=== PATIENT | female | born 1960 | race African-American/Black ===

== ENCOUNTER 2023-12-20 02:30 | Inpatient (IN) | payer SELFPAY ==
[~2023-12-20] VITALS: Ht 167.6 cm; Wt 90.7 kg
[2023-12-20 03:10] LABS: CHLORIDE 102 mEq/L (98-107); POTASSIUM 3.3 mEq/L (3.5-5.1); SODIUM 138 mEq/L (136-145)
[2023-12-20 03:11] LABS: CARBON DIOXIDE 29 mEq/L (21-32)
[2023-12-20 03:12] LABS: CALCIUM 9.6 mg/dL (8.7-10.4)
[2023-12-20 03:16] LABS: GLUCOSE 148 mg/dL (70-105)
[2023-12-20 03:17] LABS: UREA NITROGEN BLOOD 11 mg/dL (9-23)
[2023-12-20 03:23] LABS: BASOPHILS % 0.8 % (0.0-2.0); EOSINOPHILS % 1.4 % (0.0-5.0); HEMATOCRIT. 37.8 % (36.0-48.0); HEMOGLOBIN. 12.6 g/dL (12.0-16.0); LYMPHOCYTES % 39.9 % (20.0-50.0); MEAN CORPUSCULAR HEMOGLOBIN 29.1 pg (28.0-32.0); MEAN CORPUSCULAR HGB CONC 33.3 g/dL (31.0-37.0); MEAN CORPUSCULAR VOLUME 87.5 fL (81.0-99.0); MEAN PLATELET VOLUME 7.5 fl (7.4-10.4); MONOCYTES % 7.5 % (2.0-8.0); NEUTROPHILS % 50.4 % (40.0-76.0); PLATELET 379 x1000/uL (130-400); RED BLOOD CELL COUNT 4.32 mill/uL (4.2-5.4); RED CELL DISTRIBUTION WIDTH 14.6 % (11.6-14.6); WHITE BLOOD COUNT 10.9 x1000/uL (4.5-11.0)
[2023-12-20] MEDS: SODIUM CHLORIDE 0.9% 1,000 ML IV ONE (03:28)
[2023-12-20 03:35] LABS: INR 0.9; PROTHROMBIN TIME 10.6 sec (9.6-11.0)
[2023-12-20] MEDS: KETOROLAC 30MG/ML VIAL IV STA (03:36)
[2023-12-20 03:40] LABS: ETHANOL BLOOD < 10 mg/dL (<10)
[2023-12-20 05:21] LABS: CLARITY URINE CLEAR (CLEAR); COLOR URINE YELLOW (YELLOW); GLUCOSE URINE NEGATIVE (NEGATIVE); KETONES URINE NEGATIVE (NEGATIVE); LEUKOCYTE ESTERASE URINE NEGATIVE (NEGATIVE); NITRITE URINE NEGATIVE (NEGATIVE); OCCULT BLOOD URINE NEGATIVE (NEGATIVE); PH URINE >=9.0 (4.5-8.0); PROTEIN URINE TRACE (NEGATIVE); SPECIFIC GRAVITY URINE 1.012 (1.005-1.030); UROBILINOGEN URINE 0.2 E.U./dL (0.2-1.0)
[2023-12-20 05:29] LABS: BACTERIA URINE NONE SEEN; RBC URINE 0-2 /hpf (0-2); SQUAMOUS EPITHELIAL CELL URINE FEW /lpf (RARE/1+); WBC URINE 0-2 /hpf (0-2)
[2023-12-20 05:47] LABS: *AMPHETAMINES SCREEN URINE NEGATIVE (NEGATIVE); *BARBITURATES SCREEN URINE NEGATIVE (NEGATIVE); *BENZODIAZEPINES SCREEN URINE NEGATIVE (NEGATIVE); *COCAINE SCREEN URINE NEGATIVE (NEGATIVE); CANNABINOID URINE SCREEN NEGATIVE (NEGATIVE); ECSTASY MDMA SCREEN URINE NEGATIVE (NEGATIVE); METHADONE URINE SCREEN NEGATIVE (NEGATIVE); OPIATES URINE SCREEN NEGATIVE (NEGATIVE); PHENCYCLIDINE URINE SCREEN NEGATIVE (NEGATIVE)
[2023-12-20] MEDS ORDERED: BACL-141 MT (06:06)
[2023-12-20] MEDS ORDERED: ACET-2708 MT (06:06)
[2023-12-20 06:13] LABS: ALANINE AMINOTRANSFERASE 36 IU/L (10-49)
[2023-12-20 06:14] LABS: ALBUMIN 4.8 g/dL (3.2-4.8); ASPARTATE AMINOTRANSFERASE 27 IU/L (<34); BILIRUBIN DIRECT 0.2 mg/dL (<=3.0); BILIRUBIN TOTAL 0.6 mg/dL (0.1-1.0); PROTEIN TOTAL 8.1 g/dL (6.0-8.3)
[2023-12-20] MEDS: POTASSIUM CHLORIDE 20MEQ/PACKET PO SCH (10:00)
[2023-12-20 10:45] LABS: TROPONIN I HIGH SENSITIVITY 10 ng/L (3.0-34)
[2023-12-20] MEDS: KETOROLAC 30MG/ML VIAL IV PRN (11:36)
[2023-12-20] MEDS: HYDRALAZINE 20MG/ML VIAL IV PRN (11:36)
[2023-12-20] MEDS ORDERED: DEXTROSE 50% WATER 50ML SYRINGE IV PRN (15:00)
[2023-12-20] MEDS: LOSARTAN 25 MG TABLET PO SCH (15:27)
[2023-12-20] MEDS ORDERED: CLONIDINE 0.1MG TABLET PO PRN (16:15)
[2023-12-20] MEDS ORDERED: ACETAMINOPHEN 650MG/20.3ML UDC PO PRN (16:15)
[2023-12-20] MEDS: INSULIN LISPRO 100 UNITS/ML SUBCUT SCH (17:01)
[2023-12-20] MEDS: BLOOD SUGAR DIAGNOSTIC STRIP TEST SCH (17:01)
[2023-12-20] MEDS ORDERED: KETOROLAC 15MG/ML VIAL IV PRN (18:00)
[2023-12-20 19:01] LABS: T4 FREE 1.5 ng/dL (0.89-1.76); THYROID STIMULATING HORMONE 2.62 uIU/mL (0.55-4.78)
[2023-12-20 20:00] VITALS: BP 103/66; PULSE 83; RESP 18; TEMP 36.83628; O2SAT 98
[2023-12-20] MEDS: BACLOFEN 10MG TABLET PO SCH (22:24)
[2023-12-20 23:03] VITALS: BP 142/72; PULSE 75; RESP 20; TEMP 36.5292
[2023-12-21] VITALS: BP 125/71; PULSE 74; RESP 18; TEMP 36.3918; O2SAT 99
[2023-12-21] MEDS ORDERED: AMLO-308 PO (00:38)
[2023-12-21 04:00] VITALS: BP 139/81; PULSE 68; RESP 18; TEMP 36.50292; O2SAT 95
[2023-12-21] MEDS: PANTOPRAZOLE 40MG DR TABLET PO SCH (06:01)
[2023-12-21 08:00] VITALS: BP 143/85; PULSE 64; RESP 20; TEMP 36.6696; O2SAT 100
[2023-12-21] MEDS ORDERED: NIFEDIPINE XL 30MG TAB PO SCH (09:00)
[2023-12-21] MEDS: LOSARTAN 25 MG TABLET PO SCH (09:16)
[2023-12-21 12:00] VITALS: BP 149/79; PULSE 71; RESP 20; TEMP 36.72516; O2SAT 100
[2023-12-21] MEDS ORDERED: BACL-141 PO (13:38)
[2023-12-21] MEDS ORDERED: ACET-2708 PO (13:38)
[2023-12-21] MEDS ORDERED: AMLO5TAB88 PO (13:38)
[2023-12-21] MEDS ORDERED: LOSA25TA26 PO (13:38)
[2023-12-21 16:10] VITALS: BP 144/72; PULSE 77; TEMP 98; O2SAT 98
== END 2023-12-21 18:09 | disposition home or self-care (01) | DRG 199 ==
LOC: ER 02:35 → 5WST 06:39 → EDBEDREQSVC 10:47 → 8WST 22:34
PROVIDERS: ADMIT Internal Medicine; ATTEND Internal Medicine
DX: I16.0 Hypertensive urgency (principal); E78.00 Pure hypercholesterolemia, unspecified; E87.6 Hypokalemia; I10 Essential (primary) hypertension; N20.0 Calculus of kidney; N28.1 Cyst of kidney, acquired; M62.830 Muscle spasm of back; Z87.442 Personal history of urinary calculi; Z88.5 Allergy status to narcotic agent; Z88.6 Allergy status to analgesic agent; Z90.49 Acquired absence of other specified parts of digestive tract
CPT/HCPCS: 36415; 72110; 74176; 76770; 80048; 80061; 80076; 80305; 80320; 81003; 82962; 83036; 84439; 84443; 84484; 85025; 97161; 99285; J0360; J1815; J1885; J7030; G0480